=== PATIENT | female | born 1970 | race African-American/Black ===

== ENCOUNTER 2017-12-02 06:08 | Inpatient (IN) | payer OTHER ==
[2017-11-30 15:13] VITALS: BMI 34.4
[~2017-12-02 06:08] MED LIST: ALBUTEROL SO4 18 GM HFA INHALER IH PRN
[2017-12-02] MEDS ORDERED: VANCOMYCIN 1,250 MG in DEXTROSE 5%-WATER - 250 ML IVPB ONE (08:00)
--- NOTE | 2017-12-02 08:18 | HP ---
Admitting History and Physical - Admission History of Present Illness: Patient is a 47 y/o female with a past medical history of rheumotid arthritis ( plaquenil/prednsione), GERD, +MRSA (buttock) and asthma. Patient presents for left total knee replacement, Dr Lyman, today. Patient reports discontinuing plaquenil on 11/22/17 upon the recommendation of her beater operator, Dr Gupta. History Source: Patient Limitations to Obtaining History: No Limitations - Past Medical History Pulmonary: Yes: Asthma ...LMP Comment: OCT 2010 Infectious Disease: Yes: MRSA Rheumatology: Yes: Rheumatoid Arthritis - Advance Directives Advance Directives: Yes: Health Care Proxy - Smoking History Smoking history: Never smoked Have you smoked in the past 12 months: No - Alcohol/Substance Use Hx Alcohol Use: Yes (SOCIAL) History of Substance Use: reports: None - Social History Usual Living Arrangement: Yes: With Spouse ADL: Independent Occupation: nurse's aide History of Recent Travel: No Home Medications - Allergies Allergies/Adverse Reactions: Allergies Allergy/AdvReac Type Severity Reaction Status Date / Time latex Allergy Severe Swelling Verified 12/02/17 08:18 OF LIPS tramadol Allergy Severe Itching Verified 12/02/17 08:18 apple AdvReac Severe THROAT Verified 12/02/17 08:18 ITCHING/SWELLING rollins AdvReac Severe THROAT Verified 12/02/17 08:18 ITCHING/SWELLING lactose AdvReac Severe DIARRHEA Verified 12/02/17 08:18 nut - unspecified AdvReac Severe THROAT Verified 12/02/17 08:18 SWELLING/ITCHING plum AdvReac Severe THROAT Verified 12/02/17 08:18 ITCHING/SWELLING MOST FRUITS AdvReac Severe THROAT Uncoded 12/02/17 08:18 ITCHING/SWELLING - Home Medications Home Medications: Ambulatory Orders Acetaminophen [Tylenol -] 1,000 mg PO PRN PRN 11/30/17 Albuterol Sulfate [Proair Hfa] 1 puff PO PRN PRN 11/30/17 Ascorbic Acid [Vitamin C] 500 mg PO DAILY 11/30/17 Calcium Carbonate [Tums] 1 each PO DAILY 11/30/17 Cholecalciferol (Vitamin D3) [Vitamin D3] 1,000 iu PO HS 11/30/17 Famotidine [Pepcid -] 40 mg PO ACDIN 11/30/17 Fish Oil 1,000 mg Softgel 1 each PO DAILY 11/30/17 Folic Acid 1 mg PO ACDIN 11/30/17 Hydroxychloroquine Sulfate 400 mg PO HS 11/30/17 Iron 65 mg PO DAILY 11/30/17 Lactobacillus Acidophilus [Probiotic] 1 each PO DAILY 11/30/17 Naproxen [Naprosyn -] 500 mg PO HS 11/30/17 Prednisone 5 mg PO ACDIN 11/30/17 Pyridoxine HCl (B-6) [Vitamin B6 -] 100 mg PO DAILY 11/30/17 Zinc 1 each PO Q2D 11/30/17 Family Disease History - Family Disease History Family History: Denies Review of Systems - Review of Systems Constitutional: reports: No Symptoms Eyes: reports: No Symptoms HENT: reports: No Symptoms Neck: reports: No Symptoms Cardiovascular: reports: No Symptoms Respiratory: reports: No Symptoms Gastrointestinal: reports: No Symptoms Genitourinary: reports: No Symptoms Musculoskeletal: reports: Joint Pain Integumentary: reports: No Symptoms Neurological: reports: No Symptoms Endocrine: reports: No Symptoms Hematology/Lymphatic: reports: No Symptoms Psychiatric: reports: No Symptoms Physical Examination Constitutional: Yes: Well Nourished, No Distress, Calm Eyes: Yes: WNL, Conjunctiva Clear, EOM Intact HENT: Yes: WNL, Atraumatic, Normocephalic Neck: Yes: WNL, Supple, Trachea Midline Cardiovascular: Yes: WNL, Regular Rate and Rhythm, S1, S2 Respiratory: Yes: WNL, Regular, CTA Bilaterally Gastrointestinal: Yes: WNL, Normal Bowel Sounds, Soft ...Rectal Exam: Yes: Deferred Renal/: Yes: WNL Breast(s): Yes: WNL Musculoskeletal: Yes: WNL Extremities: Yes: Other (healed surgical scar to right anterior knee and right lateral ankle left lower extremity-->pain to flexion and extension of the right knee) Imaging - Results EKG: Image Reviewed, Other Problem List - Problems (1) Rheumatoid arthritis Assessment/Plan: plaquenil held, last dose 11/22/17, prednisne daily as tolerated, recommend stress dose to be given perioperatively - pt is pending left total knee replacement today, Dr Lyman - re-start plaquenil once cleared by Dr Lyman Code(s): M06.9 - RHEUMATOID ARTHRITIS, UNSPECIFIED Qualifiers: Laterality: right (2) Asthma Assessment/Plan: - no acute excerbation at this time - pt reports excerbation occurs in spring, continue albuterol nebulizer prn Code(s): J45.909 - UNSPECIFIED ASTHMA, UNCOMPLICATED (3) MRSA (methicillin resistant Staphylococcus aureus) carrier Assessment/Plan: - hx or mrsa in past, mrsa screen ordered, vanc to be given intraoperatively, strict monitoring Code(s): Z22.322 - CARRIER OR SUSPECTED CARRIER OF METHICILLIN RESIS STAPH Assessment/Plan F/E/N - npo pending or today - replete lytes prn ppx - mechancial ac only dispo: pt requires inpatient admission
[2017-12-02] MEDS ORDERED: CEFAZOLIN 2 GM in DEXTROSE 5%-WATER - 50 ML IVPB ONE (08:30)
[2017-12-02] MEDS: CELECOXIB 200 MG CAPSULE PO ONE ×2 (09:15→17:39)
[2017-12-02] MEDS ORDERED: TRANEXAMIC ACID 1000 MG/10 ML VIAL IVPUSH ONE (09:30)
[2017-12-02] MEDS ORDERED: MIDAZOLAM HCL 2 MG/2 ML SINGLE DOSE VIAL ONE ×2 (10:48→11:28)
[2017-12-02] MEDS ORDERED: BUPIVACAINE LIPOSOME/PF (EXPAREL) 266 MG/20 ML VIAL ONE ×2 (10:48→11:28)
[2017-12-02] MEDS ORDERED: DEXAMETHASONE SOD PHOSPHATE/PF 10 MG/ML SDV ONE (10:48)
[2017-12-02] MEDS ORDERED: BUPIVACAINE HCL/PF 2.5 MG/ML - 30 ML VIAL IJ ONE (11:28)
[2017-12-02] MEDS ORDERED: VANCOMYCIN 1,000 MG VIAL (RESTRICTED TO ID ONLY) ONE (11:32)
[2017-12-02] MEDS ORDERED: TRANEXAMIC ACID 1000 MG/10 ML VIAL ONE ×2 (12:23→13:58)
[2017-12-02] MEDS ORDERED: ceFAZolin SODIUM 1 GM VIAL ONE ×2 (12:23→13:58)
[2017-12-02] MEDS ORDERED: DEXAMETHASONE SOD PHOSPHATE 4 MG/1 ML VIAL ONE ×2 (12:29)
[2017-12-02] MEDS ORDERED: ONDANSETRON 4 MG/2 ML VIAL ONE ×2 (12:29)
[2017-12-02] MEDS ORDERED: PROPOFOL 20 ML ONE ×3 (12:31→13:37)
[2017-12-02] MEDS ORDERED: HYDROCORTISONE SOD SUCCINATE 2 ML ONE (13:34)
[2017-12-02] MEDS ORDERED: BENZOIN/ALOE VERA/STORAX/TOLU 58 ML BOTTLE ONE (14:14)
--- NOTE | 2017-12-02 15:09 | OP ---
Operative Note - Note: Operative Date: 12/02/17 Pre-Operative Diagnosis: Left knee DJD Operation: Left TKA via subvastus approach Implants: Hortensia Triathlon. Cemented. Femur - 4. Tibia - 4. Poly - 9mm, PS. Patella - 27mm Surgeon: Jimenez Lyman Power Operator: Paddy Lyman (Co-Surgeon) Anesthesiologist/DISPENSING OPTICIAN APPRENTICE: Castro Petit Anesthesia: Spinal Estimated Blood Loss (mls): 50 Drains & Tubes with Location: 1 x deep Hu drain Operative Report Dictated: Yes
--- NOTE | 2017-12-02 15:13 | PN ---
Progress Note (short form) - Note Progress Note: 47F s/p L TKA via subvastus approach POD #0. -Pain control. -DVT PPx: - Mechanical: SUSANNA's, SCD's. - Chemical: ASA 81mg PO BID x 6 weeks. -Incentive spirometry. -PT/OT/Rehab, OOB. -WBAT LLE. -f/u drain output. -Arabella-op antibiotics: Ancef & Vancomycin. -Care per medical hospitalist team. -Will follow. -Discharge planning. Paddy Lyman MD (Orthopaedic Surgery).
[2017-12-02] MEDS ORDERED: MAGNESIUM HYDROX 2400MG/30ML ORAL SUSPENSION 30 ML CUP PO PRN (15:15)
[2017-12-02] MEDS ORDERED: LACTATED RINGERS SOLUTION 1,000 ML IV SCH (15:15)
[2017-12-02] MEDS ORDERED: ONDANSETRON 4 MG/2 ML VIAL IVPUSH PRN ×2 (15:15→15:29)
[2017-12-02] MEDS ORDERED: MAG HYDROX/AL HYDROX/SIMETH 30 ML UNIT-DOSE CUP PO PRN (15:15)
[2017-12-02] MEDS ORDERED: PROMETHAZINE HCL 25 MG/1 ML VIAL IVPB PRN (15:29)
[2017-12-02] MEDS ORDERED: oxyCODONE HCL 5 MG TABLET PO PRN ×2 (15:29)
[2017-12-02] MEDS ORDERED: ACETAMINOPHEN 325 MG TABLET (FP) PO SCH (15:30)
[2017-12-02] MEDS ORDERED: ACETAMINOPHEN 325 MG TABLET (FP) ONE (17:00)
[2017-12-02] MEDS: ACETAMINOPHEN 325 MG TABLET (FP) PO SCH ×2 (17:41→21:20)
[2017-12-02] MEDS ORDERED: CEFAZOLIN 1 GM/D5W 1 GM/50 ML BAG IVPB SCH (18:00)
[2017-12-02] MEDS: HYDROmorphone HCL CARPU-JECT 2 MG/1 ML DISP.SYRIN IVPB PRN (20:30)
[2017-12-02] MEDS ORDERED: ASPIRIN 81 MG CHEWABLE TABLETS ONE (21:09)
[2017-12-02] MEDS: SENNOSIDES/DOCUSATE COMBO (SENNA PLUS) TABLET (UD) PO SCH (21:19)
[2017-12-02] MEDS: GABAPENTIN 300 MG CAPSULE (FP) PO SCH (21:19)
[2017-12-02] MEDS: ASPIRIN 325 MG TABLET PO SCH (21:20)
[2017-12-02] MEDS: CEFAZOLIN 1 GM/D5W 1 GM/50 ML BAG IVPB SCH (21:20)
[2017-12-02] MEDS ORDERED: oxyCODONE HCL 10 MG SUSTAINED ACTING TABLET PO SCH (22:00)
[2017-12-03] MEDS ORDERED: VANCOMYCIN 1 GRAM (PRE-DOCKED) 1,000 MG/250 ML BAG IVPB ONE (01:00)
[2017-12-03] MEDS: HYDROmorphone HCL CARPU-JECT 2 MG/1 ML DISP.SYRIN IVPB PRN (01:28)
[2017-12-03] MEDS: ACETAMINOPHEN 325 MG TABLET (FP) PO SCH ×4 (05:40→21:36)
[2017-12-03] MEDS: HYDROmorphone HCL 2 MG TABLET PO PRN ×4 (05:40→19:26)
[2017-12-03] MEDS: CEFAZOLIN 1 GM/D5W 1 GM/50 ML BAG IVPB SCH (05:40)
[2017-12-03 08:12] LABS: ANION GAP 5 (8-16); BLOOD UREA NITROGEN 12 mg/dl (7-18); CALCIUM 8.6 mg/dl (8.4-10.2); CHLORIDE 99 mmol/L (98-107); CO2 29 mmol/L (22-28); GLUCOSE,RANDOM 115 mg/dl (74-106); POTASSIUM 3.9 mmol/L (3.5-5.1); SODIUM 133 mmol/L (136-145)
[2017-12-03 08:14] LABS: HEMATOCRIT 31.1 % (32.4-45.2); HEMOGLOBIN 10.6 GM/dl (10.7-15.3); MCH 29.2 pg (25.7-33.7); MCHC 34.2 g/dl (32.0-36.0); MEAN CELL VOLUME 85.4 fl (80-96); MEAN PLT VOLUME 9.4 fl (7.5-11.1); PLATELET COUNT 210 K/MM3 (134-434); RBC 3.64 M/mm3 (3.60-5.2); WHITE BLOOD COUNT 9.2 K/mm3 (4.0-10.8)
[2017-12-03 08:36] LABS: CREATININE < 0.8 mg/dl (0.6-1.3)
--- NOTE | 2017-12-03 09:16 | OP ---
DATE OF OPERATION: DATE OF DICTATION: 12/02/2017 SURGEON: Jimenez Lyman MD COSURGEON: Paddy Lyman MD PREOPERATIVE DIAGNOSIS: Tricompartmental osteoarthritis, left knee. POSTOPERATIVE DIAGNOSIS: Tricompartmental osteoarthritis, left knee. OPERATION PERFORMED: Left posterior stabilized left total knee arthroplasty (Hortensia). ANESTHESIA: Spinal with peripheral nerve block. ANTIBIOTICS GIVEN: Kefzol 2 g, 1 g vancomycin; 1 g Kefzol given at the end of the procedure. DESCRIPTION OF PROCEDURE: Timeout was called. The left lower extremity was prepped free, draped in the routine manner with Betadine scrub solution, wiped off with alcohol, DuraPrep applied. Imaging was available for intraoperative evaluation. Midline incision utilized. The dissection was taken through subcutaneous tissue to down just beyond the tibial tubercle. The distal dissection was started first. The soft tissues were sharply dissected off the proximomedial aspect of the tibia. The incision coursed along the distal margin of the vastus medialis and lifting the entire vastus medialis off the linea aspera of the femur. This gave an easy subvastus exposure to the entire knee. The patella held vertically. The patella cut was made with an oscillating saw, the appropriate jigs seated for a size 27-mm patella button. The tibia was cut in neutral using the extramedullary jig alignment system, and the femur was then cut appropriately for the appropriate sizing of the femoral component. The sizing of the femur was size 4, size 4 base plate tibia , a size 9mm polyethylene liner, and symmetric patella 27 mm was utilized. These were all cemented into position. Coronal alignment was perfect, as was sagittal alignment. Balance was normal. Flexion-extension gaps were even, and there was no ligamentous instability in the coronal sagittal plane, normal range of movement. Patella tracking was normal. All extraneous cement had been removed. The wounds were thoroughly lavaged. CLOSURE: Soft tissue envelope with 1 Vicryl, subcutaneous 1 and 2-0 Vicryl, skin 3-0 Monocryl with Steri-Strips. DRAINAGE: A Hemovac drain, with drainage emphasized in the medial dissection for the subvastus approach. Operation went well. No complications. MD CORIN Vang/[id number] [facility]
[2017-12-03] MEDS: GABAPENTIN 300 MG CAPSULE (FP) PO SCH ×2 (09:26→21:35)
[2017-12-03] MEDS: SENNOSIDES/DOCUSATE COMBO (SENNA PLUS) TABLET (UD) PO SCH ×2 (09:27→21:36)
[2017-12-03] MEDS: ASPIRIN 325 MG TABLET PO SCH ×2 (09:27→21:36)
[2017-12-03] MEDS: PANTOPRAZOLE 40 MG TABLET (FP) PO SCH (09:27)
--- NOTE | 2017-12-03 10:11 | PN ---
Progress Note (short form) - Note Progress Note: 47F POD1 s/p L TKR under spinal anesthetic with peripheral nerve blocks for post operative pain. Pt states that pain is well controlled, and does not report any anesthetic complications. AVSS. Sensory and motor function is intact in bilateral lower extremities. Continue current regimen.
--- NOTE | 2017-12-03 14:05 | PN ---
Physical Exam: SUBJECTIVE: Patient seen and examined, reports minimal left knee pain upon movement, patient denies any paresthesia to the extremity OBJECTIVE: Patient is a 47 y/o female with a past medical history of rheumotid arthritis ( plaquenil/prednsione), GERD, +MRSA (buttock) and asthma. Patient is s/p left total knee replacement, Dr Lyman Vital Signs Period Temp Pulse Resp BP Sys/Madden Pulse Ox Last 24 Hr 97.1 F-98.9 F 48-95 11-20 99-129/62-84 98-100 GENERAL: The patient is awake, alert, and fully oriented, in no acute distress. HEAD: Normal with no signs of trauma. EYES: PERRL, extraocular movements intact, sclera anicteric, conjunctiva clear. No ptosis. ENT: Ears normal, nares patent, oropharynx clear without exudates, moist mucous membranes. NECK: Trachea midline, full range of motion, supple. LUNGS: Breath sounds equal, clear to auscultation bilaterally, no wheezes, no crackles, no accessory muscle use. HEART: Regular rate and rhythm, S1, S2 without murmur, rub or gallop. ABDOMEN: Soft, nontender, nondistended, normoactive bowel sounds, no guarding, no rebound, no hepatosplenomegaly, no masses. EXTREMITIES: 2+ pulses, warm, well-perfused, no edema, left lower extremity dressing,cdi, less than 3 second capillary refill, + 3 pedal pulse, hemovac scant drainage NEUROLOGICAL: Cranial nerves II through XII grossly intact. Normal speech, gait not observed. PSYCH: Normal mood, normal affect. SKIN: Warm, dry, normal turgor, no rashes or lesions noted Laboratory Results - last 24 hr 12/03/17 12/03/17 07:05 07:05 WBC 9.2 RBC 3.64 Hgb 10.6 L Hct 31.1 L MCV 85.4 MCH 29.2 MCHC 34.2 RDW 12.0 Plt Count 210 MPV 9.4 Sodium 133 L Potassium 3.9 Chloride 99 Carbon Dioxide 29 H Anion Gap 5 L BUN 12 Creatinine < 0.8 Random Glucose 115 H Calcium 8.6 Active Medications Generic Name Dose Route Start Last Admin Trade Name Freq PRN Reason Stop Dose Admin Acetaminophen 650 mg 12/02/17 16:00 12/03/17 09:27 Tylenol - PO 650 mg Q6H NIKO Administration Al Hydroxide/Mg Hydroxide 30 ml 12/02/17 15:15 Mylanta Oral Suspension - PO Q4H PRN DYSPEPSIA Albuterol Sulfate 1 puff 12/02/17 03:48 Ventolin Hfa Inhaler - IH PRN PRN ASTHMA Aspirin 81 mg 12/02/17 22:00 12/03/17 09:27 Asa - PO 81 mg BID NIKO Administration Fentanyl 50 mcg 12/02/17 15:29 Sublimaze Injection - IVPUSH [id number] PRN PAIN-PACU ORDER X 4 DOSES ONLY Gabapentin 300 mg 12/02/17 22:00 12/03/17 09:26 Neurontin - PO 300 mg BID NIKO Administration Hydromorphone HCl 2 mg 12/02/17 16:57 12/03/17 09:28 Dilaudid - PO 2 mg Q4H PRN Administration PAIN LEVEL 1-5 Hydromorphone HCl 1 mg 12/02/17 16:59 12/03/17 01:28 Dilaudid Injection - IVPB 1 mg Q2H PRN Administration BREAKTHROUGH PAIN Magnesium Hydroxide 30 ml 12/02/17 15:15 Milk Of Magnesia - PO PRN PRN CONSTIPATION Ondansetron HCl 4 mg 12/02/17 15:15 Zofran Injection IVPUSH Q6H PRN NAUSEA Pantoprazole Sodium 40 mg 12/03/17 10:00 12/03/17 09:27 Protonix - PO 40 mg DAILY NIKO Administration Promethazine HCl 12.5 mg 12/02/17 15:29 Phenergan Injection - IVPB Q6H PRN NAUSEA-FOR RESCUE AFTER 15 MIN Senna/Docusate Sodium 2 tablet 12/02/17 22:00 12/03/17 09:27 Pericolace - PO 2 tablet BID NIKO Administration ASSESSMENT/PLAN: 1) MS s/p left knee replacement, POD #1 (shein) - physical therapy as per the orthopedist - hgb stable - prn pain medication rheumatoid arthritis - plaqenil held, last dose 11/22/17, resume until cleared by ortho 2) pulm asthma - no acute excerbation at this time - pt reports excerbation occurs in spring, continue albuterol nebulizer prn 3) ID hx or mrsa in past mrsa screen negative, vanc given intraoperatively and post operatively strict monitoring F/E/N - reg diet - replete lytes prn ppx -asa - protonix - scd/alvin - oob - pt dispo: pt requires inpatient admission Problem List - Problems (1) Rheumatoid arthritis Code(s): M06.9 - RHEUMATOID ARTHRITIS, UNSPECIFIED Qualifiers: Laterality: right (2) Asthma Code(s): J45.909 - UNSPECIFIED ASTHMA, UNCOMPLICATED (3) MRSA (methicillin resistant Staphylococcus aureus) carrier Code(s): Z22.322 - CARRIER OR SUSPECTED CARRIER OF METHICILLIN RESIS STAPH Visit type - Emergency Visit Emergency Visit: No - New Patient This patient is new to me today: No - Critical Care Critical Care patient: No - Discharge Referral Referred to [facility] No
[2017-12-04] MEDS: ACETAMINOPHEN 325 MG TABLET (FP) PO SCH ×2 (04:00→09:23)
[2017-12-04 06:21] VITALS: BP 129/86; PULSE 111; TEMP 99.2
[2017-12-04] MEDS: HYDROmorphone HCL 2 MG TABLET PO PRN ×2 (06:43→09:22)
[2017-12-04] MEDS: ASPIRIN 325 MG TABLET PO SCH (09:21)
[2017-12-04] MEDS: GABAPENTIN 300 MG CAPSULE (FP) PO SCH (09:22)
[2017-12-04] MEDS: PANTOPRAZOLE 40 MG TABLET (FP) PO SCH (09:22)
[2017-12-04] MEDS: SENNOSIDES/DOCUSATE COMBO (SENNA PLUS) TABLET (UD) PO SCH (09:22)
[2017-12-04 10:08] LABS: HEMATOCRIT 32.2 % (32.4-45.2); HEMOGLOBIN 10.6 GM/dl (10.7-15.3); MCH 27.9 pg (25.7-33.7); MEAN CELL VOLUME 84.6 fl (80-96); PLATELET COUNT 172 K/MM3 (134-434); RBC 3.81 M/mm3 (3.60-5.2); WHITE BLOOD COUNT 9.6 K/mm3 (4.0-10.8)
--- NOTE | 2017-12-04 11:29 | DS ---
Physical Exam: SUBJECTIVE: Patient seen and examined, sitting in bedside chair, reports feeling well, reports pain to the left lower extremity upon movement OBJECTIVE:Patient is a 47 y/o female with a past medical history of rheumotid arthritis (plaquenil/prednsione), GERD, +MRSA (buttock) and asthma. Patient presents for left total knee replacement, Dr Lyman, today. Patient reports discontinuing plaquenil on 11/22/17 upon the recommendation of her jewel staker , Dr Gupta. Vital Signs Period Temp Pulse Resp BP Sys/Madden Pulse Ox Last 24 Hr 99.1 F-100.8 F 98-115 18-19 90-129/48-86 96-99 PHYSICAL EXAM GENERAL: The patient is awake, alert, and fully oriented, in no acute distress. HEAD: Normal with no signs of trauma. EYES: PERRL, extraocular movements intact, sclera anicteric, conjunctiva clear. ENT: Ears normal, nares patent, oropharynx clear without exudates, moist mucous membranes. NECK: Trachea midline, full range of motion, supple. LUNGS: Breath sounds equal, clear to auscultation bilaterally, no wheezes, no crackles, no accessory muscle use. HEART: Regular rate and rhythm, S1, S2 without murmur, rub or gallop. ABDOMEN: Soft, nontender, nondistended, normoactive bowel sounds, no guarding, no rebound, no hepatosplenomegaly, no masses. EXTREMITIES: 2+ pulses, warm, well-perfused, no edema. LEFT LOWER EXTREMITY: dressing cdi, less than 3 second capillary refill, + 3 pedal pulse NEUROLOGICAL: Cranial nerves II through XII grossly intact. Normal speech, gait not observed. PSYCH: Normal mood, normal affect. SKIN: Warm, dry, normal turgor, no rashes or lesions noted. LABS Laboratory Results - last 24 hr 12/04/17 08:00 WBC 9.6 RBC 3.81 Hgb 10.6 L Hct 32.2 L MCV 84.6 MCH 27.9 MCHC 33.0 RDW 12.0 Plt Count 172 MPV 10.0 CMP Sodium 133 mmol/L (136-145) L 12/03/17 07:05 Potassium 3.9 mmol/L (3.5-5.1) 12/03/17 07:05 Chloride 99 mmol/L (98-107) 12/03/17 07:05 Carbon Dioxide 29 mmol/L (22-28) H 12/03/17 07:05 Anion Gap 5 (8-16) L 12/03/17 07:05 BUN 12 mg/dl (7-18) 12/03/17 07:05 Creatinine < 0.8 mg/dl (0.6-1.3) 12/03/17 07:05 Random Glucose 115 mg/dl (74-106) H 12/03/17 07:05 Calcium 8.6 mg/dl (8.4-10.2) 12/03/17 07:05 HOSPITAL COURSE: Patient was admitted for elective left knee replacement, Dr Lyman. Patient ambulated the hallway on post operative day 1 with the physical therapist. patient will receive home physical therapy upon discharge. hemoglobin remained stable. patient has a past medical history of rheumatoid arthritis, plaqenil held, last dose 11/22/17, as per Dr Lyman, plaquenil to be held for 5 weeks and prednisone to be held for 1 week as per the orthopedist. Patient has a past medical history of asthma, no acute exacerbation at this time, albuterol prn continued. Patient has a past medical history of MRSA. MRSA screen negative, vanc given intraoperatively and post operatively. PLAN: - discharge home with vns - pain medication sent to pharmacy, prescription checked with [place] [employer]END[employer] - plaquenil to be held for [address] Lyman - prednisione held for [address] Lyman Date of Admission:12/02/17 Date of Discharge: 12/04/17 Minutes to complete discharge: 45 Discharge Summary Reason For Visit: OSTEOARTHRITIS Current Active Problems Asthma (Acute) MRSA (methicillin resistant Staphylococcus aureus) carrier (Acute) Rheumatoid arthritis (Acute) - Instructions - Home Medications Comprehensive Discharge Medication List: Ambulatory Orders Acetaminophen [Tylenol -] 1,000 mg PO PRN PRN 11/30/17 Albuterol Sulfate [Proair Hfa] 1 puff PO PRN PRN 11/30/17 Ascorbic Acid [Vitamin C] 500 mg PO DAILY 11/30/17 Calcium Carbonate [Tums] 1 each PO DAILY 11/30/17 Cholecalciferol (Vitamin D3) [Vitamin D3] 1,000 iu PO HS 11/30/17 Famotidine [Pepcid -] 40 mg PO ACDIN 11/30/17 Fish Oil 1,000 mg Softgel 1 each PO DAILY 11/30/17 Folic Acid 1 mg PO ACDIN 11/30/17 Hydroxychloroquine Sulfate 400 mg PO HS 11/30/17 Iron 65 mg PO DAILY 11/30/17 Lactobacillus Acidophilus [Probiotic] 1 each PO DAILY 11/30/17 Naproxen [Naprosyn -] 500 mg PO HS 11/30/17 Prednisone 5 mg PO ACDIN 11/30/17 Pyridoxine HCl (B-6) [Vitamin B6 -] 100 mg PO DAILY 11/30/17 Zinc 1 each PO Q2D 11/30/17 Problem List - Problems (1) Rheumatoid arthritis Code(s): M06.9 - RHEUMATOID ARTHRITIS, UNSPECIFIED Qualifiers: Laterality: right (2) Asthma Code(s): J45.909 - UNSPECIFIED ASTHMA, UNCOMPLICATED (3) MRSA (methicillin resistant Staphylococcus aureus) carrier Code(s): Z22.322 - CARRIER OR SUSPECTED CARRIER OF METHICILLIN RESIS STAPH This patient is new to me today: No Emergency Visit: No Critical Care patient: No - Discharge Referral Referred to [facility] No
--- NOTE | 2017-12-08 13:44 | PATH ---
Surgical Pathology Report Patient Name: SIMRAN RODRIGUEZ Med. Rec. #: [id number] /Age/Gender: 1970 (Age: 47) / F Account: [id number] Location: [facility] MED[facility] Taken: 12/02/2017 Received: 12/02/2017 Reported: 12/08/2017 Physicians: Paddy Lyman M.D. Specimen(s) Received LEFT KNEE BONE AND TISSUE Clinical History Osteoarthritis Final Diagnosis BONE AND TISSUE, LEFT KNEE, TOTAL KNEE REPLACEMENT: DEGENERATIVE JOINT DISEASE. Electronically Signed Katrin Fernandez M.D. Gross Description Received in formalin labeled "left knee bone and tissue," is a 12.5 x 1.0 x 2.0 cm aggregate of multiple rondon-yellow, irregular portions of bone and soft tissue. The tibial plateau measures 7.0 x 5.5 x 1.7 cm. There is a 2.5 cm greatest dimension area of eburnation identified. The remaining articular surfaces are rondon-yellow and focally granular. The underlying trabecular bone is yellow and hard. Transformer Inspector sections are submitted in one cassette, following decalcification. /12/03/2017 [facility]2017
== END 2017-12-04 14:00 | disposition home health service (06) | DRG 470 ==
LOC: FM/S 06:08 → EDSTATUS 11:00 → FM/S 17:44
PROVIDERS: ADMIT Orthopaedic Surgery Orthopaedic Surgery of the Spine; ATTEND Orthopaedic Surgery Orthopaedic Surgery of the Spine
PROC: 0SRD0J9 Replacement of Left Knee Joint with Synthetic Substitute, Cemented, Open Approach (ICD-10-PCS; principal; 2017-12-02 12:50)
DX: M17.12 Unilateral primary osteoarthritis, left knee (principal); K21.9 Gastro-esophageal reflux disease without esophagitis; J45.909 Unspecified asthma, uncomplicated; M06.9 Rheumatoid arthritis, unspecified; Z22.322 Carrier or suspected carrier of Methicillin resistant Staphylococcus aureus
CPT/HCPCS: 36415; 73560-TC-LT-FY; 80048; 85027; 87070; 87081; 88304-TC; 88311-TC; 94010; 94760; 97116-GP; 97162-GP